=== PATIENT | male | born 1970 | race Caucasian/White ===

== ENCOUNTER 2018-08-29 08:47 | Emergency (ER) | payer OTHER ==
[~2018-08-29] VITALS: Ht 188 cm; Wt 131.1 kg
[2018-08-29 08:54] VITALS: Ht 188 cm; Wt 131.1 kg
[2018-08-29 09:51] LABS: BASOPHIL % 0.6 % (0-2); PLATELET COUNT 163 x10^3mcL (130-400)
[2018-08-29 10:12] LABS: CARBON DIOXIDE 29.5 mmol/L (21-32); CHLORIDE SERUM 106 mmol/L (98-107); CREATININE SERUM 0.9 mg/dL (0.7-1.3); GFR1 > 60 mL/min; GLUCOSE SERUM 101 mg/dL (74-106); POTASSIUM SERUM 4.1 mmol/L (3.5-5.1); SODIUM SERUM 146 mmol/L (136-145)
[2018-08-29 10:18] LABS: ALBUMIN 3.9 g/dL (3.4-5.0); ALKALINE PHOSPHATASE 83 U/L (46-116); ALT/SGPT 31 U/L (16-63); AST/SGOT 16 U/L (15-37); BILIRUBIN TOTAL 0.57 mg/dL (0.20-1.00); TRIGLYCERIDES 115 mg/dL (<150)
[2018-08-29 10:36] LABS: CHOLESTEROL 210 mg/dL (<200); CHOLESTEROL/HDL RATIO 8.8; HDL CHOLESTEROL 24 mg/dL (40-60)
[2018-08-29 10:57] LABS: AMPHETAMINE QUAL UR NONE DETECTED (See below)
[2018-08-29 11:51] VITALS: BP 131/75
== END 2018-08-29 11:52 | disposition home or self-care (01) ==
LOC: ED 08:47
PROVIDERS: Emergency Medicine
DX: K14.1 Geographic tongue (principal); R07.89 Other chest pain; F17.210 Nicotine dependence, cigarettes, uncomplicated; E78.00 Pure hypercholesterolemia, unspecified
CPT/HCPCS: 36415; 99406